=== PATIENT | female | born 1990 | race African-American/Black ===

== ENCOUNTER 2019-07-02 18:32 | Emergency (ER) | payer MEDICAID ==
[~2019-07-02] VITALS: Ht 175.3 cm; Wt 185.0 kg
[2019-07-02 19:15] VITALS: Ht 175.3 cm; Wt 185.0 kg
[2019-07-02] MEDS ORDERED: LANTUS (19:16)
[2019-07-02] MEDS ORDERED: NAPROSYN500 MG PO (20:59)
[2019-07-02] MEDS ORDERED: BACLOFEN20 M1 PO (20:59)
[2019-07-02 21:54] VITALS: BP 152/92
== END 2019-07-02 21:55 | disposition home or self-care (01) ==
LOC: D.ER 18:32
DX: M79.10 Myalgia, unspecified site (principal); V49.9XXA Car occupant (driver) (passenger) injured in unspecified traffic accident, initial encounter; Y92.410 Unspecified street and highway as the place of occurrence of the external cause; E11.9 Type 2 diabetes mellitus without complications